=== PATIENT | male | born 1960 | race Caucasian/White ===

== ENCOUNTER → 2017-03-25 | Outpatient (CLI) | payer OTHER ==
[~2017-03-25] MED LIST: ACETAMINOPHEN PO; COLACE PO; IBUPROFEN800 MG PO; LASIX PO; MELATONIN5 MG PO; MULTI-VITAMIN1 EAC1 PO; PEPCID AC20 M2 PO; POTASSIUM99 M1 PO; PRILOSEC20 MG PO; TUMS500 MG PO; ZANTAC150 MG PO; ZYRTEC PO
--- NOTE | ~2017-03-25 | US6 ---
[facility] A Service of [facility] & [facility] RADIOLOGY TEXT RESULTS PATIENT: JENNIFER JACKSON LOCATION: [facility] : 62 UNIT #: [id number] AGE: [address]: Roopa Gomes APRN SEX: M ORDER DR: [id number] [facility] [address] [place], [place] [address] [id number] O MR#: [id number] Acc #: [id number] NAME: JENNIFER JACKSON : 1960 SEX: M STUDY DATE/TIME: 03/25/2017 16:51 UNIT: [facility] ROOM: STUDY DESCRIPTION: US Abdominal Limited Attending Physician: Roopa Gomes A.P.R.N. Ordering Physician: Roopa Gomes A.P.R.N. Primary Care Physician: Estella Salazar M.D. MEDICAL IMAGING REPORT This report is preliminary unless electronic signature is present EXAM Right upper quadrant ultrasound, 03/25/2017 HISTORY Right upper quadrant pain, flank pain and back pain for 8 weeks. No known injury. FINDINGS The liver demonstrates an increase in echotexture with attenuation of the ultrasound beam characteristic of fatty infiltration. No cystic or solid mass lesions were seen in the liver. The intra- and extrahepatic bile ducts are not dilated. The gallbladder is normal with no evidence of cholelithiasis, wall thickening or pericholecystic fluid. The common duct measures 4 mm. The pancreas is poorly visualized due to overlying bowel gas. The right kidney is normal. IMPRESSION 1. Fatty infiltration of the liver. 2. Normal gallbladder. 3. Poor visualization of the pancreas due to overlying bowel gas. Dictated by... Sebastian Mcarthur M.D. THIS IS AN ELECTRONICALLY VERIFIED REPORT Sebastian Mcarthur M.D. at 03/26/2017 7:30 AM KRT/carline TD: 03/25/2017 22:55 JOB #: [id number] MEDICAL IMAGING REPORT [facility] A Service of [facility] & [facility] RADIOLOGY TEXT RESULTS PATIENT: JENNIFER JACKSON LOCATION: [facility] #: [id number] : 62 UNIT #: [id number] AGE: [address]: Roopa Gomes APRN SEX: M ORDER DR: Page 1 of 1 COPY
== END | disposition home or self-care (01) ==
LOC: CGUS 16:26
DX: R10.11 Right upper quadrant pain (principal); K76.0 Fatty (change of) liver, not elsewhere classified
CPT/HCPCS: 76705

== ENCOUNTER 2017-08-18 10:50 | Emergency (ER) | payer OTHER ==
[~2017-08-18] VITALS: Ht 182.9 cm; Wt 149.7 kg
--- NOTE | ~2017-08-18 | CR94 ---
[facility] A Service of [facility] & [facility] RADIOLOGY TEXT RESULTS PATIENT: JENNIFER JACKSON LOCATION: [facility] : 62 UNIT #: [id number] AGE: [address]: Anat Hansen SEX: M ORDER DR: [id number] [place] [id number] [facility]. [place], [place] [address] [id number] E MR#: [id number] Acc #: [id number] NAME: JENNIFER JACKSON : 1960 SEX: M STUDY DATE/TIME: 08/18/2017 12:11 UNIT: [facility] ROOM: STUDY DESCRIPTION: CR Elbow Min 3 Views Rt Attending Physician: Anat Hansen Pa-C Ordering Physician: Ed Doctor [id number] [facility] Primary Care Physician: Estella Salazar M.D. MEDICAL IMAGING REPORT This report is preliminary unless electronic signature is present EXAM Right elbow HISTORY Right elbow pain and swelling for the past 2 weeks with numbness in the fingers. TECHNIQUE Three views of the elbow were obtained. FINDINGS AP and lateral examination of the elbow shows satisfactory articulation of the humerus with the proximal radius and ulna. There is no identifiable fracture, dislocation, joint effusion, or radiopaque foreign body in the soft tissues. IMPRESSION Normal elbow. Dictated by... Roman Deleon M.D. THIS IS AN ELECTRONICALLY VERIFIED REPORT Roman Deleon M.D. at 08/20/2017 6:00 AM TASHA/chantell TD: 08/19/2017 08:15 JOB #: [id number] MEDICAL IMAGING REPORT Page 1 of 1 COPY
--- NOTE | ~2017-08-18 | CT52 ---
[facility] A Service of [facility] & [facility] RADIOLOGY TEXT RESULTS PATIENT: JENNIFER JACKSON LOCATION: [facility] : 62 UNIT #: [id number] AGE: [address]: Anat Hansen SEX: M ORDER DR: [id number] [id number] [facility]. [place], [place] [address] [id number] E MR#: [id number] Acc #: [id number] NAME: JENNIFER JACKSON : 1960 SEX: M STUDY DATE/TIME: 08/18/2017 12:05 UNIT: [facility] ROOM: STUDY DESCRIPTION: CT Cervical Spine Wo Cont Attending Physician: Anat Hansen Pa-C Ordering Physician: Ed Doctor [id number] [facility] Primary Care Physician: Estella Salazar M.D. MEDICAL IMAGING REPORT This report is preliminary unless electronic signature is present EXAM CT cervical spine without contrast HISTORY Shoulder, neck pain x2 weeks. Question radiculopathy. FINDINGS Thin section axial images performed through the cervical spine without contrast. Multiplanar reconstructed images were reviewed at a workstation. Study was performed without intravenous or intrathecal contrast. This CT examination was performed with one or more of the following radiation dose reduction techniques: automatic exposure control, adjustment of mA and/or kV according to patient size, and iterative reconstruction. No fracture or malalignment. Atlantoaxial joint unremarkable except for mild degenerative change. Craniocervical and cervicothoracic junctions appear normal. Prevertebral soft tissues appear normal. At C2-3, there is mild posterior disc protrusion with effacement of the thecal sac but no cord impingement. At C3-4, mild posterior disc bulging with effacement of the thecal sac and no cord impingement. Mild bilateral foraminal stenosis. At C4-5, there is degenerative disc changes with disc space narrowing, broad-based posterior disc protrusion with effacement of the thecal sac and probable mild contact of the anterior cervical cord. Right C4-5 foraminal stenosis due to uncovertebral osteophyte. At C5-6, moderately advanced degenerative disc changes with a broad-based posterior disc protrusion osteophyte complex with effacement of the thecal sac and mild impingement of the anterior cervical cord. Bilateral C5-6 STS. [facility] A Service of [facility] RADIOLOGY TEXT RESULTS PATIENT: JENNIFER JACKSON LOCATION: [facility] : 62 UNIT #: [id number] AGE: [address]: Anat Hansen SEX: M ORDER DR: foraminal stenosis right greater than left. Moderate amount of uncovertebral osteophyte right C5-6 foramen. At C6-7, degenerative disc changes with a broad-based posterior disc protrusion and osteophyte contributing to mild spinal stenosis and mild bilateral foraminal stenosis. At C7-T1, the disc space is maintained. No significant spinal or foraminal stenosis. IMPRESSION Multilevel degenerative disc disease as described above in level by level detail. Canal stenosis most pronounced at C5-6 and C6-7 due to a combination of degenerative disc disease with disc bulging and osteophyte as well as associated bilateral foraminal stenosis right greater than left. Please see above for level by level details. Please note non-myelographic CT limited for evaluation of cervical disc disease. Dictated by... Mayra Adamson M.D. THIS IS AN ELECTRONICALLY VERIFIED REPORT Mayra Adamson M.D. at 08/19/2017 10:03 AM VICENTE/chantell TD: 08/19/2017 08:31 JOB #: [id number] MEDICAL IMAGING REPORT Page 1 of 1 COPY
== END 2017-08-18 13:33 | disposition home or self-care (01) ==
LOC: CED 10:50 → CFTX 10:50
DX: M50.122 Cervical disc disorder at C5-C6 level with radiculopathy (principal); M50.123 Cervical disc disorder at C6-C7 level with radiculopathy; X58.XXXA Exposure to other specified factors, initial encounter; Y92.69 Other specified industrial and construction area as the place of occurrence of the external cause
CPT/HCPCS: 72125; 73080; 99284